=== PATIENT | female | born 1940 | race Caucasian/White ===

== ENCOUNTER 2018-02-04 07:28 | Outpatient (CLI) | payer MEDICARE, MEDICAID ==
--- NOTE | 2018-02-04 08:20 | CT ---
CT OF THE BRAIN WITHOUT CONTRAST: HISTORY: Brain aneurysm. Multiple falls over the past few months. TECHNIQUE: Multiple contiguous axial images were obtained in a CT of the brain without contrast. FINDINGS: There are diffuse scattered hypodensities in the subcortical and periventricular white matter, likely secondary to small-vessel ischemic disease. Intracranial vascular calcifications are seen. No larg e calcified aneurysm is identified. No large confluent infarction is seen. There is no evidence of hydrocephalus, intracranial hemorrhage, or extraaxial fluid collection. The calvarium and overlying soft tissues are unremarkable. The visualized paranasal sinuses and mast oid air cells are well aerated. IMPRESSION: Small vessel ischemic disease without acute intracranial abnormality. POS: [facility]
--- NOTE | 2018-02-04 10:59 | ULT ---
VENOUS DOPPLER ULTRASOUND OF THE RIGHT LOWER EXTREMITY: HISTORY: Right leg pain. TECHNIQUE: Lazar scale ultrasound with color flow and spectral Doppler imaging of the deep venous system of the r ight lower extremity was performed. FINDINGS: There is good flow, compression, and augmentation noted in the right common femoral, femoral, deep fe moral, popliteal, posterior tibial, and greater saphenous veins. IMPRESSION: No evidence of deep vein thrombosis in the right lower extremity. POS: [facility]
== END 2018-02-04 07:29 | disposition home or self-care (01) ==
LOC: CT 07:28
PROVIDERS: ATTEND Family Medicine
DX: M79.604 Pain in right leg (principal); R79.1 Abnormal coagulation profile; R79.89 Other specified abnormal findings of blood chemistry; I67.1 Cerebral aneurysm, nonruptured; R29.6 Repeated falls; G45.9 Transient cerebral ischemic attack, unspecified
CPT/HCPCS: 70450

== ENCOUNTER 2018-03-07 12:32 | Outpatient (CLI) | payer MEDICARE, MEDICAID ==
[2018-03-07] MEDS ORDERED: ISOVUE-370 76%-LOCM 1 ML ONE (13:18)
== END 2018-03-07 12:33 | disposition home or self-care (01) ==
LOC: BICMRI 12:32
PROVIDERS: ATTEND Surgery
DX: S09.90XA Unspecified injury of head, initial encounter (principal); R29.6 Repeated falls; J32.9 Chronic sinusitis, unspecified; G93.89 Other specified disorders of brain; M47.897 Other spondylosis, lumbosacral region
CPT/HCPCS: 70496; 72110; 72141; 72146; 72148

== ENCOUNTER 2021-04-19 18:19 | Emergency (ER) | payer MEDICARE, MEDICAID ==
[2021-04-19 18:49] LABS: #Basophils 0.1 thou/uL (0.0-0.2); #Eosinphils 0.2 thou/uL (0.0-0.7); #Lymphocytes 1.7 thou/uL (1.20-3.40); #Monocytes 0.7 thou/uL (0.11-0.59); #Neutrophils 7.3 thou/uL (1.40-6.50); %Basophils 0.8 % (0.0-1.0); %Eosinophils 1.8 % (0.0-10.0); %Lymphocytes 17.1 % (21.0-51.0); %Neutrophils 73.3 % (42.0-75.0); Hemoglobin 13.1 g/dL (12.0-16.0); Mean Corpuscular HGB CONC 31.6 g/dL (32.0-36.0); Mean Corpuscular Hemoglobin 30.3 pg (27.0-31.0); Mean Corpuscular Volume 95.8 fL (78.0-98.0); Mean Platelet Volume 9.3 fL (7.4-10.4); Platelet Count 344 thou/uL (130-400); RBC Distribution Width 13.5 % (11.5-14.5); Red Blood Cell (RBC) Count 4.34 mill/uL (4.20-5.40)
[2021-04-19 19:03] LABS: ALT (SGPT) Less than 7 U/L (8-55); AST (SGOT) 15 U/L (5-34); Albumin 3.4 g/dL (3.4-4.8); Alkaline Phosphatase 108 U/L (40-110); Anion Gap 13 mmol/L (10-20); BUN (Urea Nitrogen) 15 mg/dL (9.8-20.1); Bilirubin, Total 0.5 mg/dL (0.2-1.2); Calc. Creatinine Clearance 0 mL/min (70-130); Calcium 8.9 mg/dL (7.8-10.44); Carbon Dioxide 30 mmol/L (23-31); Chloride 101 mmol/L (98-107); Globulin 3.7 g/dL (2.4-3.5); Glucose 207 mg/dL (83-110); Protein, Total 7.1 g/dL (5.8-8.1); Sodium 141 mmol/L (136-145)
[2021-04-19 19:09] LABS: Potassium 2.7 mmol/L (3.5-5.1)
[2021-04-19] MEDS ORDERED: Potassium Chloride 20 MEQ TAB ONE (21:59)
[2021-04-19] MEDS ORDERED: Potassium Chloride 20 MEQ/100 ML PREMIX BAG ONE (22:02)
[2021-04-19 22:10] LABS: Bilirubin Negative (Negative); Blood, Urine Negative (Negative); Clarity Clear (Clear); Glucose, Urine (Dipstick) Normal (Negative); Ketone, Urine Negative (Negative); Leukocyte Negative Leu/uL (Negative); Nitrite Negative (Negative); Protein, Urine (Dipstick) 20 mg/dL (Neg-Trace); Specific Gravity, Urine 1.021 (1.002-1.036); Urobilinogen 3 mg/dL (Less than 2); pH, Urine 6.5 (5.0-9.0)
== END 2021-04-20 01:17 ==
LOC: ERS 18:19
DX: M51.36 Other intervertebral disc degeneration, lumbar region (principal); R53.1 Weakness; F03.90 Unspecified dementia, unspecified severity, without behavioral disturbance, psychotic disturbance, mood disturbance, and anxiety
CPT/HCPCS: 36415; 51701; 74176; 80053; 81003; 85025; 87086; 93005; J3480

== ENCOUNTER → 2021-04-28 | Day surgery (SDC) | payer MEDICARE, MEDICAID | LOC: RAD 19:01 | PROVIDERS: ATTEND Physical Medicine & Rehabilitation | DX: D72.829 Elevated white blood cell count, unspecified (principal) | CPT/HCPCS: 71045 ==

== ENCOUNTER 2021-06-18 19:27 | Inpatient (IN) | payer MEDICARE, MEDICAID ==
[~2021-06-18 19:27] MED LIST: Iopamidol-370 76% 500 ML 1 ML ONE
[2021-06-18 20:14] LABS: #Lymphocytes 0.9 thou/uL (1.20-3.40); #Neutrophils 10.2 thou/uL (1.40-6.50); %Basophils 0.3 % (0.0-1.0); %Eosinophils 0.2 % (0.0-10.0); %Lymphocytes 7.3 % (21.0-51.0); %Monocytes 8.3 % (0.0-10.0); Mean Corpuscular HGB CONC 33.5 g/dL (32.0-36.0); Mean Corpuscular Hemoglobin 33.1 pg (27.0-31.0); Mean Corpuscular Volume 98.6 fL (78.0-98.0); Platelet Count 306 thou/uL (130-400); RBC Distribution Width 13.5 % (11.5-14.5); Red Blood Cell (RBC) Count 3.92 mill/uL (4.20-5.40); White Blood Cell (WBC) Count 12.2 thou/uL (4.8-10.8)
[2021-06-18] MEDS ORDERED: cefTRIAXone\\ROCEPHIN 1 GM VIAL ONE (20:21)
[2021-06-18 20:34] LABS: ALT (SGPT) 10 U/L (8-55); AST (SGOT) 24 U/L (5-34); Albumin 3.6 g/dL (3.4-4.8); Alkaline Phosphatase 71 U/L (40-110); Anion Gap 18 mmol/L (10-20); BUN (Urea Nitrogen) 16 mg/dL (9.8-20.1); Bilirubin, Total 0.4 mg/dL (0.2-1.2); Calc. Creatinine Clearance 0 mL/min (70-130); Calcium 9.2 mg/dL (7.8-10.44); Carbon Dioxide 20 mmol/L (23-31); Chloride 106 mmol/L (98-107); Globulin 4.8 g/dL (2.4-3.5); Glucose 185 mg/dL (83-110); Magnesium 1.8 mg/dL (1.6-2.6); Potassium 3.5 mmol/L (3.5-5.1); Protein, Total 8.4 g/dL (5.8-8.1); Sodium 140 mmol/L (136-145)
[2021-06-18 20:57] LABS: CKMB 3.8 ng/mL (0-6.6)
[2021-06-18 21:23] LABS: SARS-CoV-2 NAA Rapid Test DETECTED (NotDetected)
[2021-06-18] MEDS ORDERED: Dexamethasone 10 MG/ML VIAL ONE (21:34)
[2021-06-18] MEDS ORDERED: Vancomycin 1 GM/200 ML BAG ONE (21:34)
[2021-06-18] MEDS ORDERED: Acetaminophen 650 MG Suppository PR PRN (23:29)
[2021-06-18] MEDS ORDERED: Bisacodyl 10 MG SUPP PR PRN (23:29)
[2021-06-18] MEDS ORDERED: Ondansetron PF 4 MG/2 ML Vial IVP PRN (23:29)
[2021-06-18] MEDS ORDERED: Pharmacy to Dose REMDESIVIR IVPB PRN (23:34)
[2021-06-18 23:38] LABS: Lactic Acid 7.3 mmol/L (0.5-2.2); Troponin I 3.091 ng/mL (< 0.028)
[2021-06-18 23:43] LABS: Actual Bicarbonate (HCO3a) 16.9 mEq/L (22-28); Analyzer IN Cardio ER; Base Excess (BEa) -6.2 mEq/L (-2.0 to +3.0); Calcium, Ionized (arterial) 1.08 mmol/L (1.12-1.30); Carboxyhemoglobin (COHb) 0.3 gm% (0.0-3.0); Hemoglobin (Hb) 12.3 g/dL (12.0-16.0); Potassium - ABG Lab 3.28 mmol/L (3.70-5.30); pH, Arterial 7.42 (7.35-7.45)
[2021-06-18 23:58] LABS: Puncture Site LBA
[2021-06-18] MEDS ORDERED: Piperacillin/Tazobactam 3.375 GM in Sodium Chloride 0.9% 100 ML IVPB SCH (23:59)
[2021-06-19] MEDS ORDERED: Enoxaparin Sodium 40 MG/0.4 ML SYRINGE SC SCH ×2 (00:15→09:00)
[2021-06-19] MEDS ORDERED: Piperacillin/Tazobactam 3.375 GM VIAL ONE ×2 (01:20→13:22)
[2021-06-19] MEDS ORDERED: Enoxaparin Sodium 40 MG/0.4 ML SYRINGE ONE (01:20)
[2021-06-19 02:17] LABS: Hemoglobin 11.8 g/dL (12.0-16.0); Mean Corpuscular HGB CONC 33.2 g/dL (32.0-36.0); Mean Corpuscular Hemoglobin 32.7 pg (27.0-31.0); Mean Corpuscular Volume 98.5 fL (78.0-98.0); Mean Platelet Volume 8.9 fL (7.4-10.4); Platelet Count 293 thou/uL (130-400); RBC Distribution Width 13.5 % (11.5-14.5); Red Blood Cell (RBC) Count 3.62 mill/uL (4.20-5.40)
[2021-06-19] MEDS: Sodium Chloride 0.9% 1,000 ML IV SCH ×2 (02:22→13:35)
[2021-06-19 02:58] LABS: ALT (SGPT) 12 U/L (8-55); AST (SGOT) 34 U/L (5-34); Albumin 2.9 g/dL (3.4-4.8); Alkaline Phosphatase 54 U/L (40-110); Anion Gap 17 mmol/L (10-20); BUN (Urea Nitrogen) 15 mg/dL (9.8-20.1); Bilirubin, Total 0.2 mg/dL (0.2-1.2); Calc. Creatinine Clearance 50 mL/min (70-130); Calcium 8.1 mg/dL (7.8-10.44); Carbon Dioxide 17 mmol/L (23-31); Chloride 108 mmol/L (98-107); Globulin 3.9 g/dL (2.4-3.5); Glucose 153 mg/dL (83-110); Potassium 3.3 mmol/L (3.5-5.1); Protein, Total 6.8 g/dL (5.8-8.1); Sodium 139 mmol/L (136-145)
[2021-06-19] MEDS: Piperacillin/Tazobactam 3.375 GM in Sodium Chloride 0.9% 100 ML IVPB SCH ×3 (03:00→20:43)
[2021-06-19 03:03] LABS: Band 19 % (5-11); Eosinophils 1 % (0-10); Hypochromia SLIGHT = 6-15 cells (100X) (0-5/hpf); Lymphocytes 4 % (21-51); MDiff Complete? YES; Monocytes 3 % (0-10); Neutrophil 73 % (42-75); Platelet Morphology Comment Appears Adequate
[2021-06-19 03:08] LABS: Troponin I 4.091 ng/mL (< 0.028)
[2021-06-19] MEDS: Enoxaparin Sodium 40 MG/0.4 ML SYRINGE SC SCH ×2 (07:41→20:43)
[2021-06-19] MEDS ORDERED: Aspirin 300 MG Suppository ONE (07:59)
[2021-06-19] MEDS ORDERED: Aspirin 300 MG Suppository PR SCH (08:00)
[2021-06-19] MEDS ORDERED: REMDESIVIR 200 MG in Sodium Chloride 0.9% 250 ML 210 ML IV SCH (09:00)
[2021-06-19] MEDS ORDERED: Dexamethasone Sod Phosphate 6 MG in Sodium Chloride 0.9% 50 ML IVPB SCH (09:00)
[2021-06-19 09:42] LABS: Lactic Acid 2.5 mmol/L (0.5-2.2)
[2021-06-19] MEDS ORDERED: Famotidine/PF 20 mg/2ml Vial ONE (09:52)
[2021-06-19] MEDS ORDERED: Dexamethasone 4 mg/ml Vial ONE (09:52)
[2021-06-19] MEDS: Famotidine/PF 20 mg/2ml Vial SLOW IVP SCH (10:04)
[2021-06-19] MEDS: Dexamethasone 4 mg/ml Vial SLOW IVP SCH (10:04)
[2021-06-19] MEDS ORDERED: Lorazepam 2 MG/ML VIAL SLOW IVP SCH (22:00)
[2021-06-19] MEDS ORDERED: Vancomycin HCl 750 MG in Sodium Chloride 0.9% 250 ML 250 ML IVPB SCH ×2 (22:00→23:59)
[2021-06-20] MEDS: Piperacillin/Tazobactam 3.375 GM in Sodium Chloride 0.9% 100 ML IVPB SCH (04:58)
[2021-06-20] MEDS ORDERED: Lorazepam 2 MG/ML VIAL SLOW IVP SCH (06:30)
[2021-06-20] MEDS ORDERED: hydrALAZINE 20 MG/ML VIAL SLOW IVP PRN (07:20)
[2021-06-20] MEDS ORDERED: Hydrocerin (Eucerin) Cream 120 gm Jar TOP PRN (07:20)
[2021-06-20] MEDS ORDERED: Sodium Chloride 0.65% Nasal 44 ML BOT EA NARE PRN (07:20)
[2021-06-20] MEDS ORDERED: Cepastat Lozenges 1 LOZ PO PRN (07:20)
[2021-06-20] MEDS ORDERED: Artificial Tear Sol 15 ML BOT EA EYE PRN (07:20)
[2021-06-20] MEDS ORDERED: Haloperidol Lactate 5 MG/ML VIAL SLOW IVP PRN (07:22)
[2021-06-20] MEDS: Enoxaparin Sodium 40 MG/0.4 ML SYRINGE SC SCH (07:29)
[2021-06-20] MEDS: Famotidine/PF 20 mg/2ml Vial SLOW IVP SCH (07:29)
[2021-06-20] MEDS: Dexamethasone 4 mg/ml Vial SLOW IVP SCH (07:30)
[2021-06-20 07:36] VITALS: BP 130/52; TEMP 97.7
[2021-06-20 08:14] LABS: Lactic Acid 2.7 mmol/L (0.5-2.2)
[2021-06-20] MEDS ORDERED: REMDESIVIR 100 MG in Sodium Chloride 0.9% 250 ML 230 ML IV SCH (09:00)
[2021-06-20 09:29] VITALS: BMI 14.7
[2021-06-20] MEDS ORDERED: Rocuronium Bromide 10 MG/ML (10ML VIAL) ONE (11:37)
[2021-06-20] MEDS ORDERED: Lorazepam 2 MG/ML VIAL SLOW IVP PRN (11:40)
[2021-06-20] MEDS ORDERED: Metoprolol Tartrate 5 MG/5 ML VIAL ONE ×2 (11:44→11:57)
[2021-06-20] MEDS ORDERED: Fentanyl 100 MCG/2 ML VIAL SLOW IVP SCH (12:45)
== END 2021-06-20 15:17 | disposition expired | DRG 871 ==
LOC: ERS 19:27 → ERHOLD 22:44 → 2SW 06-19 15:59
PROVIDERS: ADMIT Internal Medicine; ATTEND Internal Medicine
PROC: 8E0ZXY6 Isolation (ICD-10-PCS; principal; 2021-06-18)
PROC: XW033E5 Introduction of Remdesivir Anti-infective into Peripheral Vein, Percutaneous Approach, New Technology Group 5 (ICD-10-PCS; 2021-06-19)
PROC: 0BH17EZ Insertion of Endotracheal Airway into Trachea, Via Natural or Artificial Opening (ICD-10-PCS; 2021-06-20)
PROC: 5A1935Z Respiratory Ventilation, Less than 24 Consecutive Hours (ICD-10-PCS; 2021-06-20)
DX: A41.89 Other specified sepsis (principal); U07.1 COVID-19; J12.82 Pneumonia due to coronavirus disease 2019; J96.01 Acute respiratory failure with hypoxia; J69.0 Pneumonitis due to inhalation of food and vomit; G93.41 Metabolic encephalopathy; I21.A1 Myocardial infarction type 2; E43 Unspecified severe protein-calorie malnutrition; Z68.1 Body mass index [BMI] 19.9 or less, adult; R64 Cachexia; Z66 Do not resuscitate; R65.20 Severe sepsis without septic shock; F03.90 Unspecified dementia, unspecified severity, without behavioral disturbance, psychotic disturbance, mood disturbance, and anxiety; I10 Essential (primary) hypertension; K59.04 Chronic idiopathic constipation; R41.841 Cognitive communication deficit; F32.9 Major depressive disorder, single episode, unspecified; Z78.1 Physical restraint status; Z79.899 Other long term (current) drug therapy; Z90.710 Acquired absence of both cervix and uterus
CPT/HCPCS: 0240U; 36415; 36416; 36600; 71045; 71275; 80053; 82553; 82728; 82805; 83605; 83735; 83880; 84484; 85007; 85025; 85027; 85379; 86140; 87040; 93005; 93010; 96365; 96367; 96375; J0696; J1100; J1650; J2060; J2543; J3370; J3490; J7050; Q9967; S0028